=== PATIENT | female | born 2000 | race Caucasian/White ===

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

== ENCOUNTER → 2019-06-25 | Outpatient (CLI) | payer OTHER, SELFPAY ==
[2019-06-25 09:22] VITALS: BMI 30.2
[2019-06-25 15:59] LABS: Chlamydia Trachomatis by PCR Negative (Negative); Neisserai gonorrhoeae by PCR Negative (Negative); Probe Check PASS; Sample Adequacy Control PASS; Specimen Processing Control PASS
== END | disposition home or self-care (01) ==
LOC: LABSPEC 12:39
PROVIDERS: PCP Pediatrics; Referring Provider Nurse Practitioner Women's Health; Visit Provider Nurse Practitioner Women's Health
DX: Z11.3 Encounter for screening for infections with a predominantly sexual mode of transmission (principal)
CPT/HCPCS: 87491; 87591

== ENCOUNTER 2019-09-11 11:09 | Emergency (ER) | payer OTHER, SELFPAY ==
[2019-06-25 09:22] VITALS: BMI 30.2
[2019-09-11 11:10] VITALS: BP 131/75; PULSE 106; RESP 18; TEMP 36.3; O2SAT 98; BMI 32.9
--- NOTE | 2019-09-11 11:31 | CT_ITS ---
STUDY: CT ABDOMEN AND PELVIS WITHOUT CONTRAST REASON FOR EXAM: Female, 19 years old. LLQ/LUQ PAIN. ON ATB FOR UTI RADIATION DOSAGE (If Supplied By Facility): CTDIvol = ( 13.02 ) mGy, DLP = ( 1010.77 ) mGycm TECHNIQUE: Transaxial images were obtained from the dome of the diaphragm to the symphysis pubis without oral contrast, and without intravenous contrast. Sagittal and coronal images were reconstructed. Individualized dose optimization techniques were used for this CT. COMPARISON: None. FINDINGS: The visualized lung bases are unremarkable. The visualized portions of the heart are within normal limits. Normal liver. Normal gallbladder and extrahepatic biliary system. Normal spleen. Normal pancreas. Normal bilateral adrenal glands. Normal right kidney. Normal left kidney. Normal visualized stomach. Normal small intestine. Normal colon. The appendix is visualized and appears normal. Normal abdominal aorta. Normal inferior vena cava. Normal retroperitoneum. Normal urinary bladder. There is a 2.1 cm x 2.5 cm left ovarian cyst. Normal abdominal wall. Normal osseous structures. CT/Abdomen/Pelvis W IV Cont ONLY IMPRESSION: 2.1 cm x 2.5 cm left ovarian cyst. Electronically Signed: Marv Bond, at 13:24 EDT , Service support ,
[2019-09-11 11:38] LABS: Mucous, Urine 0 SEEN /hpf (<or=2+); Red Blood Cells-Urine 0 SEEN /hpf (0-5); White Blood Cells 0 SEEN /hpf (0-5)
[2019-09-11 11:41] LABS: Color, Urine Straw (Yellow); Glucose, Dipstick Normal (Normal); Ketone-Dipstick Negative (Negative); Leukocyte Esterase-Dipstick Negative /ul (Negative); Nitrite-Dipstick Negative (Negative); Occult Blood-Urine 10 /ul (Negative); Protein-Dipstick Negative (Negative); Specific Gravity, Urine 1.005 (1.002-1.030); Urine Bilirubin Dipstick Negative (Negative); Urine Clarity Clear (Clear); Urine Urobilinogen Normal (Normal)
[2019-09-11 11:44] LABS: Internal QC Validated? YES +Cl - CLEAR BKGD; Pregnancy, Urine Negative Negative
[2019-09-11 11:47] LABS: Bacteria 1+ /hpf (None Seen); Squamous Epithelial Cells - UA 0-5 SEEN /hpf (5-10)
[2019-09-11] MEDS: 0.9% Normal Saline 1,000 ML 1000 ML IV (12:01)
[2019-09-11 12:16] LABS: Absolute Lymphocyte Count 1.58 X10^3/uL (0.83-4.51); Absolute Neutrophil Count 4.2 X10^3/uL (2.0-7.7); Basophil# 0.04 X10^3/uL; Basophil% 0.6 % (0-1); Eosinophil# 0.12 X10^3/uL; Eosinophils% 1.9 % (0-5); Hematocrit 41.6 % (37-47); Hemoglobin 13.8 g/dL (12.0-15.0); Lymphocyte # 1.58 X10^3/ul (4.0); Lymphocyte % 24.5 % (19-41); Mean Corp Hgb Conc 33.2 g/dL (32-36); Mean Corpuscular Hgb 30.3 pg (27.0-32.0); Mean Corpuscular Volume 91.4 fL (81-99); Mean Platelet Vol. 9.7 fl (6.2-12.0); Monocyte# 0.51 X10^3/uL; Monocyte% 7.9 % (0-10); NRBC Flagged by Analyzer 0 % (0-5); Neutrophil # 4.16 X10^3/uL (2.7-7.7); Neutrophil % 64.6 % (47-70); Platelet Count 214 K/mm3 (150-450); RBC Distribution Width CV 11.8 % (11.6-14.6); RBC Distribution Width SD 39.3 fl (35.1-43.9); Red Blood Count 4.55 M/mm3 (4.2-5.4); White Blood Count 6.4 K/mm3 (4.4-11.0)
[2019-09-11 12:30] LABS: ALB/GLOB Ratio 1.2 RATIO (0.9-2.4); AST(SGOT) 11 U/L (15-37); Alanine Aminotransfer ALT/SGPT 21 U/L (13-56); Albumin, Serum 3.8 g/dL (3.2-5.0); Alkaline Phosphatase 78 U/L (45-117); Anion Gap 7 (5-15); BUN 9 mg/dL (7-18); BUN/Creat Ratio 10.6 RATIO (10-20); Chloride 104 mmol/L (98-107); Creatinine, Serum 0.85 mg/dL (0.55-1.02); EST Glomerular Filtration Rate 90 mL/min (>60); Est Glom Filt Rate - Afr Amer 109 mL/min (>60); Globulin 3.3 g/dL (2.2-4.2); Glucose 102 mg/dL (74-106); Lipase 65 U/L (73-393); Potassium 3.7 mmol/L (3.5-5.1); Protein, Total 7.1 g/dL (6.4-8.2); Sodium Level 139 mmol/L (136-145)
--- NOTE | 2019-09-11 12:43 | ED.VIS.GI ---
History of Present Illness - Abdominal Pain/Flank Pain Onset: Weeks - 2 weeks Context: Gradual Onset Timing: Intermittent Quality: Cramping Location: LUQ, LLQ, Left Flank Current Severity: Moderate Maximum Severity: Severe Worsened by: Food Relieved by: Remaining Still - Nausea/Vomiting/Emesis GI Symptom: Nausea Onset: Today, Yesterday Severity: Mild - Diarrhea/Melena/Hematochezia GI Symptom: Negative for: Diarrhea, Melena, Hematochezia Associated Symptoms: Negative for: Dysuria, Frequency, Hematuria, Urgency Narrative: 19-year-old female presents to the emergency department with left-sided abdominal pain that she is been having intermittently for 2 weeks. She has seen her doctor 3 times, the first time it was a virtual visit and she was having dysuria so they placed her on Macrobid which did not improve her symptoms. She had a follow-up and they treated her for bacterial vaginosis with Flagyl and did a pelvic exam. She had a follow-up again yesterday with a placed her on Cipro and she had outpatient ultrasounds this morning, transvaginal and retroperitoneal, but is having worsening left-sided abdominal pain which prompted her visit to the emergency department. She has had nausea without vomiting. She states she is having normal bowel movements. No urinary symptoms vaginal bleeding or discharge. No fevers. Prior similar symptoms: Yes Recent Illness/Hospitalization: No <Artemio Rodriguez - Last Filed: 09/11/19 13:32> <Aster Flores - Last Filed: 09/22/19 23:55> Chief Complaint: Abd Pain Past Medical History Prior records reviewed: Yes Past Medical History: None Surgical History: no surgical history Lives: With Family Smoking Status: Never smoker Alcohol: None Drugs: None <Artemio Rodriguez - Last Filed: 09/11/19 13:32> <Aster Flores - Last Filed: 09/22/19 23:55> - Allergies and Home Meds Allergies/Adverse Reactions: Allergies No Known Allergies Allergy (Verified 09/11/19 11:13) Primary Care Physician: Amadeo Liu PA [Primary Care Provider] - Review of Systems All systems negative except as indicated General: Denies: Chills, Fever, Sweats Eyes: Denies: Visual changes - bilaterally, Diplopia ENT: Denies: Rhinorrhea, Sore throat Cardiovascular: Denies: Chest pain, Palpitations Respiratory: Denies: Dyspnea, Cough, Dyspnea on exertion Gastrointestinal: Reports: Abdominal pain, Nausea. Denies: Vomiting, Diarrhea, Melena, Hematochezia Genitourinary: Denies: Dysuria, Hematuria, Frequency Musculoskeletal: Denies: Back pain, Extremity Pain Skin: Denies: Rash, Wounds Neurological: Denies: Headache, Weakness, Numbness Endocrine: Denies: Polyuria, Polydipsia <Denise Rodriguezony - Last Filed: 09/11/19 13:32> Physical Exam Vital Signs/Narrative: Vital Signs Temp Pulse Resp BP Pulse Ox 09/11/19 11:10 97.4 F L 106 H 18 131/75 H 98 Inital Vital Signs reviewed: Yes General: Well nourished, Well developed, No Acute Distress Head: Normocephalic, Atraumatic Eyes: Perrl, EOMI ENT: Moist mucous membranes, No rhinorrhea Neck: Supple, Nontender Cardiovascular: Regular rate, Regular rhythm, No murmurs Respiratory: No distress, CTA bilaterally, Chest nontender Abdomen: Soft, Nondistended, Normal bowel sounds, Tender - LUQ and LLQ TTP Back: Nontender, Normal Inspection. Negative for: CVA tenderness Extremities: Nontender, No edema Skin: Normal color, No rash Neurological: Alert, Oriented x3, Cranial nerves II-XII grossly intact, Normal Strength, Normal Sensation Psychological: Normal affect, Normal Mood <Denise Rodriguezony - Last Filed: 09/11/19 13:32> Diagnostic/Tx/Re-eval CT: Abdomen and Pelvis Impressions Abdomen/Pelvis CT 09/11/19 11:31 IMPRESSION: 2.1 cm x 2.5 cm left ovarian cyst. Electronically Signed: Marv Bond, at 13:24 EDT , Service support , 09/11/19 11:31 CT Abd [Abdomen/Pelvis W IV Cont ONLY] [CT] Stat Laboratory Results 09/11/19 09/11/19 09/11/19 11:25 11:25 12:02 WBC 6.4 RBC 4.55 Hgb 13.8 Hct 41.6 MCV 91.4 MCH 30.3 MCHC 33.2 RDW Std Deviation 39.3 RDW Coeff of Linda 11.8 Plt Count 214 MPV 9.7 Immature Gran % (Auto) 0.500 Neut % (Auto) 64.6 Lymph % (Auto) 24.5 [place] % (Auto) 7.9 Eos % (Auto) 1.9 Baso % (Auto) 0.6 Absolute Neuts (auto) 4.2 Absolute Lymphs (auto) 1.58 Nucleated RBC % 0 Sodium Potassium Chloride Carbon Dioxide Anion Gap BUN Creatinine Estim Creat Clear Calc Est GFR (MDRD) Af Amer Est GFR (MDRD) Non-Af BUN/Creatinine Ratio Glucose Calcium Total Bilirubin AST ALT Alkaline Phosphatase Total Protein Albumin Globulin Albumin/Globulin Ratio Lipase Urine Color Straw Urine Clarity Clear Urine pH 7.0 Ur Specific [place] 1.005 Urine Protein Negative Urine Glucose (UA) Normal Urine Ketones Negative Urine Occult Blood 10 H Urine Nitrite Negative Urine Bilirubin Negative Urine Urobilinogen Normal Ur Leukocyte Esterase Negative Urine RBC 0 SEEN Urine WBC 0 SEEN Ur Squamous Epith Cells 0-5 SEEN Urine Bacteria 1+ Urine Mucus 0 SEEN Urine Test Negative 09/11/19 12:02 WBC RBC Hgb Hct MCV MCH MCHC RDW Std Deviation RDW Coeff of Linda Plt Count MPV Immature Gran % (Auto) Neut % (Auto) Lymph % (Auto) [place] % (Auto) Eos % (Auto) Baso % (Auto) Absolute Neuts (auto) Absolute Lymphs (auto) Nucleated RBC % Sodium 139 Potassium 3.7 Chloride 104 Carbon Dioxide 28.0 Anion Gap 7 BUN 9 Creatinine 0.85 Estim Creat Clear Calc 83.50 Est GFR (MDRD) Af Amer 109 Est GFR (MDRD) Non-Af 90 BUN/Creatinine Ratio 10.6 Glucose 102 Calcium 9.0 Total Bilirubin 0.50 AST 11 L ALT 21 Alkaline Phosphatase 78 Total Protein 7.1 Albumin 3.8 Globulin 3.3 Albumin/Globulin Ratio 1.2 Lipase 65 L Urine Color Urine Clarity Urine pH Ur Specific [place] Urine Protein Urine Glucose (UA) Urine Ketones Urine Occult Blood Urine Nitrite Urine Bilirubin Urine Urobilinogen Ur Leukocyte Esterase Urine RBC Urine WBC Ur Squamous Epith Cells Urine Bacteria Urine Mucus Urine Test - Medical Decision Making Patient treated with IV fluids. CBC CMP lipase were unremarkable. Urinalysis unremarkable as well. I reviewed the patient's outpatient ultrasounds. Her transvaginal ultrasound showed a left-sided ovarian cyst no other acute findings. Retroperitoneal ultrasound unremarkable as well. CT scan abdomen and pelvis with IV contrast was obtained here in the emergency department which showed a left-sided ovarian cyst but no other acute findings. At this time we feel the patient symptoms are likely due to GERD she was given IV Pepcid I will prescribe her Pepcid she will follow-up with her primary care and I discussed a GERD diet. Mom and patient were agreeable. Her repeat abdominal exam is soft and nontender. She is tolerating by mouth. She was discharged home. <Artemio Rodriguez - Last Filed: 09/11/19 13:32> - Medical Decision Making Patient evaluated independently and in conjunction with physician assistant superintendent. Agree with note above unless documented otherwise. Patient does not appear to have any acute intra-abdominal surgical process. She is very well-appearing. She is counseled on a bland diet. She will be treated presumptively as GERD however patient and mother counseled that the exact cause is not clear. <Aster Flores - Last Filed: 09/22/19 23:55> ED Disposition <Artemio Rodriguez - Last Filed: 09/11/19 13:32> <Aster Flores - Last Filed: 09/22/19 23:55> - Plan for ED Patient: Disposition: Home or Assisted Living Diagnosis: Abdominal pain, ADHD, Hypertension Instructions: Gastroesophageal Reflux Disease (GERD), ED Abdominal Pain Unkn Cause Fem Prescriptions: Famotidine [Pepcid] 20 mg PO BID #28 tab Prescription Printed Referrals: Amadeo Liu PA [Primary Care Provider] -
[2019-09-11] MEDS: Famotidine 200 MG/20 ML MDV 20 MG in 0.9% Normal Saline (Pres. free 8 ML 300 MG IV (14:01)
[2019-09-11 14:03] VITALS: BP 113/56; PULSE 79; PULSE 83; RESP 17; RESP 18; O2SAT 99
== END 2019-09-11 14:33 | disposition home or self-care (01) ==
PROVIDERS: Emergency Provider Physician Assistant Medical; PCP Physician Assistant
DX: R10.32 Left lower quadrant pain (principal); R10.12 Left upper quadrant pain; I10 Essential (primary) hypertension; F90.9 Attention-deficit hyperactivity disorder, unspecified type; N83.202 Unspecified ovarian cyst, left side
CPT/HCPCS: 74177; 80053; 81001; 81025; 83690; 85025; 96360; 96361; 99283; J7030; Q9967; A4216; J3490

== ENCOUNTER → 2020-10-27 | Outpatient (CLI) | payer OTHER, SELFPAY ==
[2020-10-27 13:08] VITALS: BMI 41.8
[2020-10-31 04:06] LABS: Chlamydia By Nucleic Acid AMP Negative (Negative)
[2020-10-31 07:23] LABS: Gonococcus By Nucleic Acid AMP Negative (Negative)
[2020-11-01 16:48] LABS: HPV Reflexed? NOT INDICATED
== END | disposition home or self-care (01) ==
PROVIDERS: PCP Physician Assistant; Referring Provider Nurse Practitioner Women's Health; Visit Provider Nurse Practitioner Women's Health
DX: Z12.4 Encounter for screening for malignant neoplasm of cervix (principal); Z11.3 Encounter for screening for infections with a predominantly sexual mode of transmission
CPT/HCPCS: 87491; 87591; 88175; G0145

== ENCOUNTER 2021-07-03 07:32 | Outpatient (CLI) | payer OTHER, SELFPAY ==
[2021-07-03 08:48] LABS: Prolactin 14.4 ng/mL; Thyroid Stim Hormone (TSH) 1.59 uIU/mL (0.358-3.74)
== END 2021-07-03 23:59 | disposition home or self-care (01) ==
LOC: PAVLAB 07:34
PROVIDERS: PCP Physician Assistant; Referring Provider Nurse Practitioner Women's Health; Visit Provider Nurse Practitioner Women's Health
DX: N97.0 Female infertility associated with anovulation (principal)
CPT/HCPCS: 36415; 82627; 84146; 84402; 84443; 82626

== ENCOUNTER 2021-07-21 07:30 | Outpatient (CLI) | payer OTHER, SELFPAY ==
[2021-07-21 08:02] LABS: Progesterone Level 0.91 ng/mL (See Comment)
== END 2021-07-21 23:59 | disposition home or self-care (01) ==
LOC: PAVLAB 07:31
PROVIDERS: Nurse Practitioner Women's Health; PCP Physician Assistant; Referring Provider Obstetrics & Gynecology; Visit Provider Obstetrics & Gynecology
DX: N97.0 Female infertility associated with anovulation (principal)
CPT/HCPCS: 36415; 84144

== ENCOUNTER 2021-07-25 16:41 | Outpatient (CLI) | payer OTHER, SELFPAY ==
[2021-07-25 17:33] LABS: T4 Free Direct 0.99 ng/dL (0.76-1.46); Thyroid Stim Hormone (TSH) 1.58 uIU/mL (0.358-3.74)
== END 2021-07-25 23:59 | disposition home or self-care (01) ==
LOC: LAB 16:42
PROVIDERS: PCP Physician Assistant; Visit Provider Obstetrics & Gynecology
DX: N97.0 Female infertility associated with anovulation (principal)
CPT/HCPCS: 36415; 84439; 84443

== ENCOUNTER → 2021-09-25 | Outpatient (CLI) | payer OTHER, SELFPAY ==
[2021-09-25 08:20] LABS: Progesterone Level 5.96 ng/mL (See Comment)
== END | disposition home or self-care (01) ==
LOC: PAVLAB 07:35
PROVIDERS: PCP Physician Assistant; Referring Provider Nurse Practitioner Women's Health; Visit Provider Nurse Practitioner Women's Health
DX: N97.0 Female infertility associated with anovulation (principal)
CPT/HCPCS: 36415; 84144

== ENCOUNTER → 2021-10-26 | Outpatient (CLI) | payer OTHER, SELFPAY | END | disposition home or self-care (01) | LOC: PAVLAB 07:33 | PROVIDERS: PCP Physician Assistant; Referring Provider Nurse Practitioner Women's Health; Visit Provider Nurse Practitioner Women's Health | DX: N97.0 Female infertility associated with anovulation (principal) | CPT/HCPCS: 36415; 84144 ==

== ENCOUNTER → 2022-05-11 | Outpatient (CLI) | payer BC, OTHER, SELFPAY ==
[2022-05-11 10:13] LABS: Hemoglobin A1c 4.7 % (3.8-5.6)
[2022-05-14 14:52] LABS: Anti-Mullerian Hormone,Serum 3.97 ng/mL (.)
== END | disposition home or self-care (01) ==
LOC: WOBLAB 08:42
PROVIDERS: PCP Physician Assistant; Visit Provider Obstetrics & Gynecology Reproductive Endocrinology
DX: Z31.41 Encounter for fertility testing (principal)
CPT/HCPCS: 36415; 83036; 83516

== ENCOUNTER → 2022-05-21 | Outpatient (CLI) | payer BC, OTHER, SELFPAY ==
[2022-05-21 09:38] LABS: Follicle Stimulating Hormone 7.7 mIU/mL; Luteinizing Hormone 3.9 mIU/mL; Thyroid Stim Hormone (TSH) 1.04 uIU/mL (0.358-3.74)
[2022-05-21 09:51] LABS: hCG Titer Quant., Serum < 1 mIU/mL (1-3)
== END | disposition home or self-care (01) ==
LOC: PAVLAB 08:58
PROVIDERS: PCP Physician Assistant; Referring Provider Obstetrics & Gynecology Reproductive Endocrinology; Visit Provider Obstetrics & Gynecology Reproductive Endocrinology
DX: Z31.83 Encounter for assisted reproductive fertility procedure cycle (principal)
CPT/HCPCS: 36415; 82670; 83001; 83002; 84144; 84443; 84702

== ENCOUNTER → 2022-05-25 | Outpatient (CLI) | payer BC, OTHER, SELFPAY ==
[2022-05-25 08:38] LABS: Estradiol 36.3 pg/mL; Luteinizing Hormone 7.4 mIU/mL
[2022-05-25 09:00] LABS: Progesterone Level 0.36 ng/mL (See Comment)
== END | disposition home or self-care (01) ==
LOC: PAVLAB 08:07
PROVIDERS: PCP Physician Assistant; Referring Provider Obstetrics & Gynecology Reproductive Endocrinology; Visit Provider Obstetrics & Gynecology Reproductive Endocrinology
DX: Z31.83 Encounter for assisted reproductive fertility procedure cycle (principal)
CPT/HCPCS: 36415; 82670; 83002; 84144

== ENCOUNTER → 2022-05-28 | Outpatient (CLI) | payer BC, OTHER, SELFPAY ==
[2022-05-28 09:05] LABS: Estradiol 67.8 pg/mL; Luteinizing Hormone 1.3 mIU/mL
[2022-05-28 09:13] LABS: Progesterone Level 0.26 ng/mL (See Comment)
== END | disposition home or self-care (01) ==
LOC: PAVLAB 08:35
PROVIDERS: PCP Physician Assistant; Referring Provider Obstetrics & Gynecology Reproductive Endocrinology; Visit Provider Obstetrics & Gynecology Reproductive Endocrinology
DX: Z31.83 Encounter for assisted reproductive fertility procedure cycle (principal)
CPT/HCPCS: 36415; 82670; 83002; 84144

== ENCOUNTER → 2022-05-30 | Outpatient (CLI) | payer BC, OTHER, SELFPAY ==
[2022-05-30 09:05] LABS: Estradiol 89.9 pg/mL; Luteinizing Hormone 0.9 mIU/mL
[2022-05-30 09:35] LABS: Progesterone Level 0.33 ng/mL (See Comment)
== END | disposition home or self-care (01) ==
LOC: PAVLAB 08:32
PROVIDERS: PCP Physician Assistant; Referring Provider Obstetrics & Gynecology Reproductive Endocrinology; Visit Provider Obstetrics & Gynecology Reproductive Endocrinology
DX: Z31.83 Encounter for assisted reproductive fertility procedure cycle (principal)
CPT/HCPCS: 36415; 82670; 83002; 84144

== ENCOUNTER → 2022-06-01 | Outpatient (CLI) | payer BC, OTHER, SELFPAY ==
[2022-06-01 10:31] LABS: Progesterone Level 0.53 ng/mL (See Comment)
[2022-06-01 10:40] LABS: Estradiol 244.6 pg/mL; Luteinizing Hormone 0.8 mIU/mL
== END | disposition home or self-care (01) ==
LOC: PAVLAB 09:47
PROVIDERS: PCP Physician Assistant; Referring Provider Obstetrics & Gynecology Reproductive Endocrinology; Visit Provider Obstetrics & Gynecology Reproductive Endocrinology
DX: Z31.83 Encounter for assisted reproductive fertility procedure cycle (principal)
CPT/HCPCS: 36415; 82670; 83002; 84144

== ENCOUNTER → 2022-06-12 | Outpatient (CLI) | payer BC, OTHER, SELFPAY ==
[2022-06-12 08:31] LABS: Estradiol 634.2 pg/mL
[2022-06-12 09:44] LABS: Progesterone Level 106.23 ng/mL (See Comment)
== END | disposition home or self-care (01) ==
LOC: PAVLAB 07:57
PROVIDERS: PCP Physician Assistant; Referring Provider Obstetrics & Gynecology Reproductive Endocrinology; Visit Provider Obstetrics & Gynecology Reproductive Endocrinology
DX: Z31.49 Encounter for other procreative investigation and testing (principal)
CPT/HCPCS: 36415; 82670; 84144

== ENCOUNTER → 2022-06-19 | Outpatient (CLI) | payer BC, OTHER, SELFPAY ==
[2022-06-19 09:17] LABS: hCG Titer Quant., Serum 13 mIU/mL (1-3)
[2022-06-19 09:18] LABS: Progesterone Level 40.25 ng/mL (See Comment)
== END | disposition home or self-care (01) ==
LOC: PAVLAB 08:13
PROVIDERS: PCP Physician Assistant; Referring Provider Obstetrics & Gynecology Reproductive Endocrinology; Visit Provider Obstetrics & Gynecology Reproductive Endocrinology
DX: Z32.00 Encounter for pregnancy test, result unknown (principal)
CPT/HCPCS: 36415; 84144; 84702

== ENCOUNTER → 2022-06-21 | Outpatient (CLI) | payer BC, OTHER, SELFPAY ==
[2022-06-21 08:57] LABS: Progesterone Level 42.12 ng/mL (See Comment)
[2022-06-21 08:58] LABS: hCG Titer Quant., Serum 12 mIU/mL (1-3)
[2022-06-21 09:05] LABS: Estradiol 201.5 pg/mL; Thyroid Stim Hormone (TSH) 2.27 uIU/mL (0.358-3.74)
== END | disposition home or self-care (01) ==
LOC: PAVLAB 07:59
PROVIDERS: PCP Physician Assistant; Referring Provider Obstetrics & Gynecology Reproductive Endocrinology; Visit Provider Obstetrics & Gynecology Reproductive Endocrinology
DX: Z32.01 Encounter for pregnancy test, result positive (principal)
CPT/HCPCS: 36415; 82670; 84144; 84443; 84702

== ENCOUNTER → 2022-06-25 | Outpatient (CLI) | payer BC, OTHER, SELFPAY ==
[2022-06-25 08:32] LABS: Estradiol 104.9 pg/mL
[2022-06-25 08:36] LABS: hCG Titer Quant., Serum 3 mIU/mL (1-3)
[2022-06-25 08:37] LABS: Progesterone Level 44.51 ng/mL (See Comment)
== END | disposition home or self-care (01) ==
PROVIDERS: PCP Physician Assistant; Referring Provider Obstetrics & Gynecology Reproductive Endocrinology; Visit Provider Obstetrics & Gynecology Reproductive Endocrinology
DX: O02.81 Inappropriate change in quantitative human chorionic gonadotropin (hCG) in early pregnancy (principal)
CPT/HCPCS: 36415; 82670; 84144; 84702

== ENCOUNTER → 2022-07-02 | Outpatient (CLI) | payer BC, OTHER, SELFPAY ==
[2022-07-02 09:42] LABS: Follicle Stimulating Hormone 6.2 mIU/mL; Luteinizing Hormone 1.9 mIU/mL; Thyroid Stim Hormone (TSH) 1.69 uIU/mL (0.358-3.74)
[2022-07-02 09:46] LABS: hCG Titer Quant., Serum < 1 mIU/mL (1-3)
[2022-07-02 09:51] LABS: Progesterone Level < 0.21 ng/mL (See Comment)
== END | disposition home or self-care (01) ==
LOC: PAVLAB 08:55
PROVIDERS: PCP Physician Assistant; Referring Provider Obstetrics & Gynecology Reproductive Endocrinology; Visit Provider Obstetrics & Gynecology Reproductive Endocrinology
DX: Z31.83 Encounter for assisted reproductive fertility procedure cycle (principal)
CPT/HCPCS: 36415; 82670; 83001; 83002; 84144; 84443; 84702

== ENCOUNTER → 2022-07-09 | Outpatient (CLI) | payer BC, OTHER, SELFPAY ==
[2022-07-09 10:08] LABS: Progesterone Level 0.29 ng/mL (See Comment)
[2022-07-09 10:09] LABS: Estradiol 214.5 pg/mL; Luteinizing Hormone 3.9 mIU/mL
== END | disposition home or self-care (01) ==
LOC: WOBLAB 08:33
PROVIDERS: PCP Physician Assistant; Visit Provider Obstetrics & Gynecology Reproductive Endocrinology
DX: Z31.83 Encounter for assisted reproductive fertility procedure cycle (principal)
CPT/HCPCS: 36415; 82670; 83002; 84144

== ENCOUNTER → 2022-07-12 | Outpatient (CLI) | payer BC, OTHER, SELFPAY ==
[2022-07-12 09:37] LABS: Estradiol 480.3 pg/mL; Luteinizing Hormone 2.8 mIU/mL; Progesterone Level 0.42 ng/mL (See Comment)
== END | disposition home or self-care (01) ==
LOC: WOBLAB 08:54
PROVIDERS: PCP Physician Assistant; Visit Provider Obstetrics & Gynecology Reproductive Endocrinology
DX: Z31.83 Encounter for assisted reproductive fertility procedure cycle (principal)
CPT/HCPCS: 36415; 82670; 83002; 84144

== ENCOUNTER → 2022-07-21 | Outpatient (CLI) | payer BC, OTHER, SELFPAY ==
[2022-07-21 10:34] LABS: Progesterone Level 30.31 ng/mL (See Comment)
== END | disposition home or self-care (01) ==
LOC: MTLAB 09:09 → LAB 09:09
PROVIDERS: PCP Physician Assistant; Referring Provider Obstetrics & Gynecology Reproductive Endocrinology; Visit Provider Obstetrics & Gynecology Reproductive Endocrinology
DX: Z31.49 Encounter for other procreative investigation and testing (principal)
CPT/HCPCS: 36415; 82670; 84144

== ENCOUNTER → 2022-07-28 | Outpatient (CLI) | payer BC, OTHER, SELFPAY ==
[2022-07-28 09:44] LABS: hCG Titer Quant., Serum < 1 mIU/mL (1-3)
[2022-07-30 09:02] LABS: Progesterone Level 38.55 ng/mL (See Comment)
== END | disposition home or self-care (01) ==
LOC: LAB 09:14
PROVIDERS: PCP Physician Assistant; Referring Provider Obstetrics & Gynecology Reproductive Endocrinology; Visit Provider Obstetrics & Gynecology Reproductive Endocrinology
DX: Z32.00 Encounter for pregnancy test, result unknown (principal)
CPT/HCPCS: 36415; 84144; 84702

== ENCOUNTER → 2022-08-03 | Outpatient (CLI) | payer BC, OTHER, SELFPAY ==
[2022-08-03 10:12] LABS: Progesterone Level 1.57 ng/mL (See Comment)
[2022-08-03 10:14] LABS: hCG Titer Quant., Serum < 1 mIU/mL (1-3)
[2022-08-03 10:18] LABS: Estradiol 24.3 pg/mL; Follicle Stimulating Hormone 2.6 mIU/mL; Luteinizing Hormone 0.6 mIU/mL; Thyroid Stim Hormone (TSH) 1.01 uIU/mL (0.358-3.74)
== END | disposition home or self-care (01) ==
LOC: WOBLAB 09:17
PROVIDERS: PCP Physician Assistant; Visit Provider Obstetrics & Gynecology Reproductive Endocrinology
DX: Z31.83 Encounter for assisted reproductive fertility procedure cycle (principal)
CPT/HCPCS: 36415; 82670; 83001; 83002; 84144; 84443; 84702

== ENCOUNTER → 2022-08-10 | Outpatient (CLI) | payer BC, OTHER, SELFPAY ==
[2022-08-10 10:55] LABS: Estradiol 110.6 pg/mL; Luteinizing Hormone 0.4 mIU/mL
[2022-08-10 11:26] LABS: Progesterone Level < 0.21 ng/mL (See Comment)
== END | disposition home or self-care (01) ==
LOC: WOBLAB 09:51
PROVIDERS: PCP Physician Assistant; Visit Provider Obstetrics & Gynecology Reproductive Endocrinology
DX: Z31.83 Encounter for assisted reproductive fertility procedure cycle (principal)
CPT/HCPCS: 36415; 82670; 83002; 84144

== ENCOUNTER → 2022-08-13 | Outpatient (CLI) | payer BC, OTHER, SELFPAY ==
[2022-08-13 11:06] LABS: Estradiol 493.3 pg/mL; Luteinizing Hormone 0.3 mIU/mL
== END | disposition home or self-care (01) ==
LOC: WOBLAB 09:58
PROVIDERS: PCP Physician Assistant; Visit Provider Obstetrics & Gynecology Reproductive Endocrinology
DX: Z31.83 Encounter for assisted reproductive fertility procedure cycle (principal)
CPT/HCPCS: 36415; 82670; 83002; 84144

== ENCOUNTER → 2022-08-15 | Outpatient (CLI) | payer BC, OTHER, SELFPAY ==
[2022-08-15 09:47] LABS: Estradiol 1283.9 pg/mL; Luteinizing Hormone 0.7 mIU/mL
[2022-08-15 09:53] LABS: Progesterone Level 1.33 ng/mL (See Comment)
== END | disposition home or self-care (01) ==
LOC: WOBLAB 08:57
PROVIDERS: PCP Physician Assistant; Visit Provider Obstetrics & Gynecology Reproductive Endocrinology
DX: Z31.83 Encounter for assisted reproductive fertility procedure cycle (principal)
CPT/HCPCS: 36415; 82670; 83002; 84144

== ENCOUNTER → 2022-09-07 | Outpatient (CLI) | payer BC, OTHER, SELFPAY ==
[2022-09-07 09:44] LABS: Estradiol 46.1 pg/mL; Luteinizing Hormone 4.8 mIU/mL
[2022-09-07 10:10] LABS: Progesterone Level < 0.21 ng/mL (See Comment)
== END | disposition home or self-care (01) ==
LOC: WOBLAB 08:49
PROVIDERS: PCP Physician Assistant; Visit Provider Obstetrics & Gynecology Reproductive Endocrinology
DX: Z31.83 Encounter for assisted reproductive fertility procedure cycle (principal)
CPT/HCPCS: 36415; 82670; 83002; 84144

== ENCOUNTER → 2022-09-10 | Outpatient (CLI) | payer BC, OTHER, SELFPAY ==
[2022-09-10 09:15] LABS: Estradiol 122.8 pg/mL; Luteinizing Hormone 3.5 mIU/mL
[2022-09-10 10:28] LABS: Progesterone Level < 0.21 ng/mL (See Comment)
== END | disposition home or self-care (01) ==
LOC: PAVLAB 08:36
PROVIDERS: PCP Physician Assistant; Referring Provider Obstetrics & Gynecology Reproductive Endocrinology; Visit Provider Obstetrics & Gynecology Reproductive Endocrinology
DX: Z31.83 Encounter for assisted reproductive fertility procedure cycle (principal); E28.9 Ovarian dysfunction, unspecified
CPT/HCPCS: 36415; 82670; 83002; 84144

== ENCOUNTER → 2022-09-12 | Outpatient (CLI) | payer BC, OTHER, SELFPAY ==
[2022-09-12 10:30] LABS: Progesterone Level 0.45 ng/mL (See Comment)
[2022-09-12 10:31] LABS: Estradiol 248.9 pg/mL; Luteinizing Hormone 8.6 mIU/mL
== END | disposition home or self-care (01) ==
LOC: WOBLAB 09:36
PROVIDERS: PCP Physician Assistant; Visit Provider Obstetrics & Gynecology Reproductive Endocrinology
DX: Z31.83 Encounter for assisted reproductive fertility procedure cycle (principal)
CPT/HCPCS: 36415; 82670; 83002; 84144

== ENCOUNTER → 2022-09-24 | Outpatient (CLI) | payer BC, OTHER, SELFPAY ==
[2022-09-24 09:01] LABS: Estradiol 524.8 pg/mL
[2022-09-24 10:58] LABS: Progesterone Level 66.72 ng/mL (See Comment)
== END | disposition home or self-care (01) ==
LOC: PAVLAB 08:05
PROVIDERS: PCP Physician Assistant; Referring Provider Obstetrics & Gynecology Reproductive Endocrinology; Visit Provider Obstetrics & Gynecology Reproductive Endocrinology
DX: Z31.49 Encounter for other procreative investigation and testing (principal)
CPT/HCPCS: 36415; 82670; 84144

== ENCOUNTER → 2022-09-28 | Outpatient (CLI) | payer BC, OTHER, SELFPAY ==
[2022-09-28 08:49] LABS: hCG Titer Quant., Serum 110 mIU/mL (1-3)
[2022-09-28 09:17] LABS: Progesterone Level 74.35 ng/mL (See Comment)
== END | disposition home or self-care (01) ==
PROVIDERS: PCP Physician Assistant; Referring Provider Obstetrics & Gynecology Reproductive Endocrinology; Visit Provider Obstetrics & Gynecology Reproductive Endocrinology
DX: Z32.00 Encounter for pregnancy test, result unknown (principal)
CPT/HCPCS: 36415; 84144; 84702

== ENCOUNTER → 2022-10-02 | Outpatient (CLI) | payer BC, OTHER, SELFPAY ==
[2022-10-02 08:47] LABS: hCG Titer Quant., Serum 844 mIU/mL (1-3)
[2022-10-02 08:50] LABS: Estradiol 749.2 pg/mL
[2022-10-02 10:30] LABS: Progesterone Level 77.28 ng/mL (See Comment)
== END | disposition home or self-care (01) ==
LOC: PAVLAB 08:13
PROVIDERS: PCP Physician Assistant; Referring Provider Obstetrics & Gynecology Reproductive Endocrinology; Visit Provider Obstetrics & Gynecology Reproductive Endocrinology
DX: Z32.01 Encounter for pregnancy test, result positive (principal)
CPT/HCPCS: 36415; 82670; 84144; 84443; 84702

== ENCOUNTER → 2022-10-05 | Outpatient (CLI) | payer BC, OTHER, SELFPAY ==
[2022-10-05 08:36] LABS: Estradiol 767.6 pg/mL
[2022-10-05 09:12] LABS: Progesterone Level 56.95 ng/mL (See Comment); hCG Titer Quant., Serum 2174 mIU/mL (1-3)
== END | disposition home or self-care (01) ==
LOC: PAVLAB 08:04
PROVIDERS: PCP Physician Assistant; Referring Provider Obstetrics & Gynecology Reproductive Endocrinology; Visit Provider Obstetrics & Gynecology Reproductive Endocrinology
DX: Z32.01 Encounter for pregnancy test, result positive (principal)
CPT/HCPCS: 36415; 82670; 84144; 84702

== ENCOUNTER → 2022-10-17 | Outpatient (CLI) | payer BC, OTHER, SELFPAY ==
[2022-10-17 12:26] LABS: Estradiol 752.5 pg/mL
[2022-10-17 13:02] LABS: Progesterone Level 66.98 ng/mL (See Comment)
[2022-10-17 13:03] LABS: hCG Titer Quant., Serum 49430 mIU/mL (1-3)
== END | disposition home or self-care (01) ==
PROVIDERS: PCP Physician Assistant; Referring Provider Obstetrics & Gynecology Reproductive Endocrinology; Visit Provider Obstetrics & Gynecology Reproductive Endocrinology
DX: O09.90 Supervision of high risk pregnancy, unspecified, unspecified trimester (principal); Z3A.00 Weeks of gestation of pregnancy not specified
CPT/HCPCS: 36415; 82670; 84144; 84702

== ENCOUNTER → 2022-10-24 | Outpatient (CLI) | payer BC, OTHER, SELFPAY ==
[2022-10-24 11:24] LABS: Estradiol 747.3 pg/mL
[2022-10-24 12:14] LABS: Progesterone Level 67.76 ng/mL (See Comment)
== END | disposition home or self-care (01) ==
LOC: PAVLAB 10:44
PROVIDERS: PCP Physician Assistant; Referring Provider Obstetrics & Gynecology Reproductive Endocrinology; Visit Provider Obstetrics & Gynecology Reproductive Endocrinology
DX: O09.00 Supervision of pregnancy with history of infertility, unspecified trimester (principal); Z3A.00 Weeks of gestation of pregnancy not specified
CPT/HCPCS: 36415; 82670; 84144; 84702

== ENCOUNTER 2023-05-20 18:20 | Inpatient (IN) | payer OTHER, SELFPAY ==
[2023-05-20] VITALS (9 sets, daily range): BP systolic 119–145; BP diastolic 61–93; PULSE 90–100; TEMP 37–37.4; O2SAT 97–98; BMI 47.3
[2023-05-20 17:56] LABS: Hematocrit 38.7 % (37-47); Hemoglobin 13.2 g/dL (12.0-15.0); Mean Corp Hgb Conc 34.1 g/dL (32-36); Mean Corpuscular Hgb 30.1 pg (27.0-32.0); Mean Corpuscular Volume 88.4 fL (81-99); Platelet Count 255 K/mm3 (150-450); RBC Distribution Width CV 12.3 % (11.6-14.6); RBC Distribution Width SD 40.2 fl (35.1-43.9); Red Blood Count 4.38 M/mm3 (4.2-5.4); White Blood Count 11.5 K/mm3 (4.4-11.0)
[2023-05-20 18:14] LABS: Protein, Urine (Random) 107.5 mg/dL (<11.9); Protein:Creat Ratio 546 mg/g CRE (0-200)
[2023-05-20 18:16] LABS: AST(SGOT) 25 U/L (15-37); Alanine Aminotransfer ALT/SGPT 13 U/L (13-56); Creatinine, Serum 0.71 mg/dL (0.55-1.02); EST Glomerular Filtration Rate 108 mL/min (>60); Est Glom Filt Rate - Afr Amer 131 mL/min (>60); Estimated Creatinine Clearance 149.84 ml/min; Uric Acid 4.5 mg/dL (2.6-6.0)
--- NOTE | 2023-05-20 18:55 | PCM.HP.OB ---
HPI - General General Date of Admission: 05/20/23 Date of Service: 05/20/23 Chief Complaint: cHTN with super imposed pre e HPI Narrative MAURO CELESTIN, is a 22 F who presents from office for r/o pre e. H/o cHTN on labetalol. Over the last week she has had off and on headaches. No vision changes or RUQ pain. No N/V. No ctx, vb, lof. Good FM. Increased swelling in hands and legs. PFSH PFSH Medical History Abdominal pain Hypertension Nausea vomiting and diarrhea Home Medications labetalol 100 mg tablet 100 mg PO BID 10/27/20 [History Last Taken 05/20/23 08:00 100 mg] Vitamin 1 tab PO DAILY 05/20/23 [History Last Taken 05/20/23 08:00 1tab] metformin 500 mg tablet 500 mg PO BID 05/20/23 [History Last Taken 05/20/23 08:00 500 mg] sertraline 50 mg tablet (Zoloft) 50 mg PO DAILY 05/20/23 [History Last Taken 05/20/23 08:00 50 mg] Allergy/AdvReac Type Severity Reaction Status Date / Time amoxicillin [From Augmentin] AdvReac Intermediate nausea, Verified 05/20/23 17:20 vominting, diarrhea clavulanic acid AdvReac Intermediate nausea, Verified 05/20/23 17:20 [From Augmentin] vominting, diarrhea Social History (Updated 06/26/21 @ 09:10 by Juana Holland) Smoking Status: Never smoker alcohol intake: never substance use type: does not use caffeine: Yes what type of physical activity do you participate in: walking seatbelt use: always do you feel safe at home: Yes additional social history: [place] - [employer] works at [employer] History 0 Elective abortions Hx Para Spontaneous abortions Hx # Term Pregnancies Ectopic pregnancies Hx # Pregnancies Multiple births # of living children NST FHR Rate Baby A Baseline: 145 Variability:: Moderate Accelerations:: 15 x 15 Decelerations:: None NST Reactive:: Yes FHR Category:: Category I Uterine Activity:: no regular ctx's Vital Signs Vital Signs Vital Signs: 05/20/23 17:18 05/20/23 17:18 05/20/23 17:38 Temperature Temperature Source Pulse Rate 93 Blood Pressure 135/76 H 119/78 BP Systolic 135 119 BP Diastolic 76 78 05/20/23 17:38 05/20/23 17:38 05/20/23 17:38 Temperature 98.6 F Temperature Source Temporal Pulse Rate 99 Blood Pressure BP Systolic BP Diastolic 05/20/23 17:48 05/20/23 17:48 05/20/23 18:04 Temperature Temperature Source Pulse Rate 98 Blood Pressure 134/77 H 132/61 H BP Systolic 134 132 BP Diastolic 77 61 05/20/23 18:04 05/20/23 18:19 05/20/23 18:19 Temperature Temperature Source Pulse Rate 93 93 Blood Pressure 139/70 H BP Systolic 139 BP Diastolic 70 05/20/23 18:33 05/20/23 18:33 Temperature Temperature Source Pulse Rate 98 Blood Pressure 145/80 H BP Systolic 145 BP Diastolic 80 Weight Weight: 258 lb 13.163 oz Body Mass Index (BMI) 47.3 Labs Labs Labs: Hct 38.7 % (37-47) Hgb 13.2 g/dL (12.0-15.0) Syphilis Total Ab Pending Chlamydia DNA (RAYRAY) Negative (Negative) N.gonorrhoeae DNA (RAYRAY) Negative (Negative) Miscellaneous Test Assessment & Plan (1) 37 weeks gestation of : PLAN: Admit for induction given cHTN with super imposed pre eclampsia without severe features. No severe range BP's. No hyper reflexia on exam. No VELA currently. Cytotec ordered. GBS negative. Epidural PRN. Pelvis adequate. EFW expected to be < 4500 g. (2) Chronic hypertension: PLAN: BP stable. Cont Labetalol. (3) Pre-eclampsia: PLAN: P/c ratio elevated. The remaining pre e labs are WNL. (4) Obesity affecting : (5) Anxiety: (6) conceived using assisted reproductive technology (ART): PLAN: by IVF.
[2023-05-20] MEDS: miSOPROStol 25 MCG TABLET PO ×2 (19:22→23:32)
[2023-05-20 19:33] LABS: Syphilis Antibodies Non-reactive
[2023-05-20] MEDS: 0.9% Saline Lock 10 ML Syringe IV (20:11)
[2023-05-20] MEDS: CHLORHEXIDINE GLUC 2% CLOTH 1 EACH TOWELETTE TOPICAL (21:27)
[2023-05-20] MEDS: Labetalol 100 MG Tablet PO (21:50)
[2023-05-21] VITALS (67 sets, daily range): BP systolic 123–168; BP diastolic 51–100; PULSE 86–121; RESP 16–18; TEMP 36.5–37.2; O2SAT 80–100
[2023-05-21] MEDS: miSOPROStol 25 MCG TABLET PO (03:16)
[2023-05-21] MEDS: 0.9% Normal Saline Single 100 ML IV.SOLN. INTRA-UTER (06:21)
[2023-05-21] MEDS: Oxytocin 15 Units/NS 250ml 15 UNITS/250 ML IV.SOLN 2 UNITS IV (07:51)
[2023-05-21] MEDS: Lactated Ringers 1,000 ML 50 ML IV (07:51)
[2023-05-21] MEDS: Labetalol 100 MG Tablet PO (09:14)
--- NOTE | 2023-05-21 09:18 | PCM.PN.BLA ---
Progress Note Late entry from 6:10 AM. Patient was not appreciating many contractions. She denied headache or visual changes. heart tones are category 1. Risk benefits and alternatives to Elizabeth induction labor discussed with patient she desired to proceed. Elizabeth was placed over the stylette in usual sterile fashion inflated to 30 cc. Patient and fetus tolerated the procedure well. Initiate Pitocin after 4 hours from last Cytotec. May have a late breakfast.
[2023-05-21] MEDS: CHLORHEXIDINE GLUC 2% CLOTH 1 EACH TOWELETTE TOPICAL (09:46)
[2023-05-21] MEDS: 0.9% Saline Lock 10 ML Syringe IV (13:07)
[2023-05-21] MEDS: Mag Hydrox/Al Hydrox/Simeth 30 ML UDC PO (13:07)
[2023-05-21] MEDS: LACTATED RINGERS 500 ML 999 ML IV (14:00)
[2023-05-21] MEDS: fentaNYL-bupivacaine (epidural) 100 ML BAG EPIDURAL ×2 (16:36→19:49)
[2023-05-21] MEDS: Lactated Ringers 1,000 ML 200 ML IV (17:57)
[2023-05-21] MEDS: Ondansetron 4 MG/2 ML Vial IV (20:56)
[2023-05-21] MEDS: Acetaminophen 500 MG Tablet PO (21:14)
[2023-05-21] MEDS: Sodium Citrate/Citric Acid 30 ML UDC PO (21:15)
--- NOTE | 2023-05-21 21:25 | OP.PCM_ITS ---
Maternal Data Information Final RENNY: 06/07/23 Gestational age: 37 4/7 Details Operative Information Date of Procedure: 05/21/23 Pre-Operative Diagnosis: arrest of dilation, CPD Post-Operative Diagnosis: same Classification: JAMES Procedure Type: low transverse implementation engineer #1: Dina Arboleda Type of Anesthesia: Epidural Anesthesiologist: Jun Bernard Antibiotic Given: Ancef 3 grams IV x1 and Zithromax 500 mg/5 mL X1 Drain: Elizabeth to straight drain Findings Description of Procedure: The patient was assessed by me at approximately 9 PM. Her cervix was still 5 cm and now is significantly edematous. Other than going from posterior to mid position there had been no significant cervical change since rupture of membranes. There is now edema of the cervix with moderate caput of the skull. There have been adequate contractions. There had not been any significant descent either. I discussed with the patient and her family response and alternatives to primary section and recommendation for this at this time. Met arrest of dilation and CPD criteria. The patient was taken to the operating room. She was prepped and draped in the dorsal supine position with a leftward tilt. A Pfannenstiel skin incision was made approximately 2 cm above the symphysis pubis and carried through to underlying layer fascia with the scalpel. The fascia was incised incised in the midline and extended laterally with the Gilmore scissors. The fascia was dissected off the rectus muscles with blunt and sharp dissection. The rectus muscles were in the midline and the peritoneum was entered bluntly. The peritoneal incision was stretched and the bladder blade was placed. The uterine incision was made in a low transverse fashion with the scalpel and extended superiorly and inferiorly with blunt dissection. The amniotic membranes were ruptured bluntly and light meconium stained amniotic fluid returned. The 's head was brought to the incision in the flexed position and delivered without difficulty. The remainder of the infant was delivered with gentle traction and fundal pressure in the standard fashion. The mouth and nares were bulb suctioned. The cord was clamped and cut as the infant was stimulated. Cord clamping was delayed. The infant was handed off to the waiting nursing staff. The placenta was delivered with fundal massage and gentle traction in the standard fashion. The uterus was exteriorized and cleared of all clots and debris. . The uterine incision was closed with #1 Vicryl in a running locked fashion. A second layer of the same suture was used in an imbricating fashion to obtain hemostasis. The incision was examined and was found to be hemostatic. The uterus was placed back into the peritoneal cavity and hemostasis was again confirmed. The rectus muscles were examined and any bleeding was Bovie cauterized. The parietal peritoneum and rectus muscles were closed en bloc with an 0 Vicryl running suture. The rectus fascia was examined and any bleeding was Bovie cauterized and the rectus fascia was closed with #1 looped PDS suture in a running standard fashion. The subcutaneous tissue was examining and any bleeding was Bovie cauterized. The subcutaneous tissue was reapproximated with 3-0 Vicryl suture. The skin was closed in a subcuticular fashion in a subcuticular fashion with 3-0 Monocryl suture. I performed the entire procedure with assistance. All sponge, lap, and needle counts were correct. The patient was taken to her room for recovery in a stable condition. Presentation: Positive for Vertex Amniotic Membrane Rupture Type: Artificial Amniotic Fluid Description: Lightly stained meconium Placental Delivery Description: Expressed Placenta Disposition: [facility] Cord Vessel Description: 3 Vessels Cord Entanglement: None Cord Gases: ABG and VBG A Gender: Female (Kollins) (1 minute): 9 (5 minute): 9 Delayed Cord Clamping: Yes Complications Complications: none Admit VTE Documentation VTE Present on Admission: No VTE Mechan Device Prophylaxis: SCD's VTE Pharm Prophylaxis Ordered: Yes
[2023-05-21] MEDS: Cefazolin 3 GM in 0.9% Normal Saline (100mL Bag) 100 ML IV (21:26)
[2023-05-21] MEDS: Azithromycin 500 MG in Dextrose 5%-Water (250mL Bag) 250 ML 250 MG IV (22:00)
[2023-05-21] MEDS: Oxytocin 15 Units/NS 250ml 15 UNITS/250 ML IV.SOLN 83 UNITS IV (22:42)
[2023-05-21] MEDS: Ketorolac 30 MG/ML Syringe IV (23:37)
[2023-05-21 23:44] LABS: Bedside Glucose 57 mg/dL (74-106)
[2023-05-22] VITALS (12 sets, daily range): BP systolic 112–144; BP diastolic 63–89; PULSE 78–107; RESP 16–18; TEMP 36.1–36.9; O2SAT 96–100
[2023-05-22] MEDS: Acetaminophen 500 MG Tablet 1000 MG PO ×4 (01:41→20:49)
[2023-05-22] MEDS: Lactated Ringers 1,000 ML 100 ML IV (01:47)
[2023-05-22] MEDS: HYDROmorphone 1 MG/ML Syringe IV (02:45)
[2023-05-22] MEDS: Ketorolac 30 MG/ML Syringe IV ×3 (04:41→18:17)
[2023-05-22] MEDS: Labetalol 100 MG Tablet PO ×2 (06:00→22:30)
[2023-05-22] MEDS: LACTATED RINGERS 500 ML 999 ML IV (06:00)
[2023-05-22 06:03] LABS: Hematocrit 31.3 % (37-47); Hemoglobin 10.4 g/dL (12.0-15.0); Mean Corp Hgb Conc 33.2 g/dL (32-36); Mean Corpuscular Hgb 29.5 pg (27.0-32.0); Mean Corpuscular Volume 88.9 fL (81-99); Mean Platelet Vol. 10.7 fl (6.2-12.0); Platelet Count 180 K/mm3 (150-450); RBC Distribution Width CV 12.6 % (11.6-14.6); RBC Distribution Width SD 40.5 fl (35.1-43.9); Red Blood Count 3.52 M/mm3 (4.2-5.4); White Blood Count 15.9 K/mm3 (4.4-11.0)
--- NOTE | 2023-05-22 06:33 | NURSING ---
Epidural catheter removed at 0600. Blue tip intact.
[2023-05-22] MEDS: metFORMIN HCl 500 MG Tablet PO ×2 (08:03→19:01)
--- NOTE | 2023-05-22 08:31 | PCM.PROGNOTE ---
Subjective Subjective patient seen at bedside, doing well. Patient reports good pain control. lochia mild. denies VELA, visual changes or RUQ pain. Objective Data Objective Data Vital Signs: Vital Signs Temp Pulse Resp BP Pulse Ox O2 Del Method 97.7 F L 78 16 112/63 97 Room Air 05/22/23 07:59 05/22/23 07:59 05/22/23 07:59 05/22/23 07:59 05/22/23 07:59 05/22/23 07:59 Oxygen Delivery Method Room Air Weight: 117.4 kg Body Mass Index (BMI) 47.3 Intake & Output: Intake and Output for Last 24 Hours 05/20/23 05/21/23 05/22/23 23:59 23:59 23:59 Intake Total 300 / 300 3739.33 / 3739.33 900 / 900 Output Total 100 / 100 1375 / 1375 150 / 150 Balance 200 / 200 2364.33 / 2364.33 750 / 750 Lab / Micro Data 05/22/23 05:55 05/20/23 17:35 Labs: Laboratory Results - last 24 hr 05/20/23 17:35: Blood Type O POSITIVE, Antibody Screen NEGATIVE 05/21/23 23:17: POC Glucose 57 L 05/22/23 05:55: WBC 15.9 H, RBC 3.52 L, Hgb 10.4 L, Hct 31.3 L, MCV 88.9, MCH 29.5, MCHC 33.2, RDW Std Deviation 40.5, RDW Coeff of Linda 12.6, Plt Count 180, MPV 10.7 Physical Exam Narrative Fundus firm. Dressing dry and intact. Diffuse swelling of extremities, mello catheter in place. Const alert and oriented x3 General Appearance: cooperative HEENT normocephalic Neck General: normal visual inspection GI soft to palpation and non-distended GI Narrative: Fundus firm Extremity normal to inspection and no calf tenderness Skin no rashes or lesions noted Neuro oriented x3 and CN's II-XII intact bilaterally Psych mental status grossly normal Assessment & Plan Assessment/Plan (1) conceived using assisted reproductive technology (ART): (2) Anxiety: (3) Obesity affecting : (4) Pre-eclampsia: (5) Chronic hypertension: (6) Delivery by section: PLAN: Plan POD#1 , Doing well Routine care pain mgmt monitor VS ambulation continue labetalol 100mg BID
[2023-05-22] MEDS: Senna/Docusate Sodium 1 Tablet PO (10:21)
[2023-05-22] MEDS: Sertraline 50 MG Tablet PO (10:21)
[2023-05-22] MEDS: 0.9% Saline Lock 10 ML Syringe IV ×2 (12:16→18:18)
[2023-05-23] MEDS: Naproxen 500 MG Tablet PO ×2 (02:07→10:08)
[2023-05-23 02:10] VITALS: BP 119/70; PULSE 89; RESP 16; TEMP 36.2; O2SAT 97
[2023-05-23] MEDS: Acetaminophen 500 MG Tablet 1000 MG PO ×2 (02:55→10:11)
[2023-05-23 07:44] VITALS: BP 121/93; PULSE 87; RESP 18; TEMP 36.1; O2SAT 98
--- NOTE | 2023-05-23 08:47 | PCM.PN.OB ---
Subjective Subjective Pain well-controlled. Average lochia. Passing flatus, no bowel movement yet. Ambulating urinating without difficulty. Denies any chest pain shortness of breath or lightheadedness. Denies any headache or visual changes. Objective Data Objective Data Vital Signs: Vital Signs Temp Pulse Resp BP Pulse Ox O2 Del Method 96.9 F L 87 18 121/93 H 98 Room Air 05/23/23 07:44 05/23/23 07:44 05/23/23 07:44 05/23/23 07:44 05/23/23 07:44 05/23/23 07:44 Oxygen Delivery Method Room Air Weight: 117.4 kg Body Mass Index (BMI) 47.3 Intake & Output: Intake and Output for Last 24 Hours 05/21/23 05/22/23 05/23/23 23:59 23:59 23:59 Intake Total 3739.33 / 3739.33 1621 / 1621 Output Total 1375 / 1375 650 / 650 Balance 2364.33 / 2364.33 971 / 971 Lab / Micro Data 05/22/23 05:55 05/20/23 17:35 Physical Exam Narrative 2+ lower extremity edema, 2+ DTRs and no clonus Const alert and no apparent distress Narrative: Fundus firm, below umbilicus. Assessment & Plan (1) Delivery by section: PLAN: Postoperative day #2 status post primary section. bottlefeeding doing well. Preeclampsia without severe features superimposed on chronic hypertension. Increase labetalol to 200 mg p.o. twice daily. May DC home today with close surveillance of blood pressures and follow-up in the office. Patient will return or call for signs or symptoms of severe preeclampsia.
--- NOTE | 2023-05-23 08:51 | PCM.DC.SUM ---
Providers Date of Admission: 05/20/23 Primary Care Physician: JACINTA Agudelo Reason For Visit: C SECTION Diagnosis Discharge Diagnosis (1) Delivery by section: Status: Acute Plan: Postoperative day #2 status post primary section. bottlefeeding doing well. Preeclampsia without severe features superimposed on chronic hypertension. Increase labetalol to 200 mg p.o. twice daily. May DC home today with close surveillance of blood pressures and follow-up in the office. Patient will return or call for signs or symptoms of severe preeclampsia. Medications at Discharge Home Medications Vitamin 1 tab PO DAILY 05/20/23 metformin 500 mg tablet 500 mg PO BID 05/20/23 sertraline 50 mg tablet (Zoloft) 50 mg PO DAILY 05/20/23 ibuprofen 600 mg tablet 600 mg PO Q6H PRN Pain 20 days #60 TABLETS 05/23/23 labetalol 100 mg tablet 200 mg (2 x 100 mg) PO BID #60 tabs 05/23/23 Hospital Course Operations - (Primary LTCS) Procedures None Summary of Care Provided Minutes Spent on Discharge: 22 Hospital Course: 22-year-old nulliparous female admitted at 37 weeks gestation on 05/20/2023. She underwent Cytotec then Elizabeth Pitocin induction of labor overnight for chronic hypertension with superimposed preeclampsia without severe features. Her was complicated by maternal obesity, she conceived by in vitro fertilization, chronic hypertension, and she was on metformin for PCOS. she progressed to 4 cm nurse. Despite adequate contractions for over 10 hours, she remained 5 cm. The cervix was swollen and there was moderate caput. She then underwent primary low-transverse section on 05/21/2023. By 05/23/2023 she was ambulating, urinating tolerating regular diet without difficulty and her blood pressures were well-controlled. She was discharged home with routine instructions and follow-up in the office on Saturday or as needed. Return for signs or symptoms of severe preeclampsia. She will have home blood pressure monitoring. Will increase her labetalol to 200 mg p.o. twice daily and she will continue her other home medications. Weight / BMI Weight Weight: 117.4 kg Body Mass Index (BMI) 47.3 ABG / Lab / Microbiology Data 05/22/23 05:55 05/20/23 17:35 D/C Instructions Discharge Diet: No restrictions May resume sexual activity in: 4-6 weeks Lifting Restrictions: 20 pounds Additional Activity Instructions: Nothing in the vagina for 4-6 weeks. You may return to work/school in 6 weeks. Call your doctor if your incision/area has: Continuous Slow Oozing, Sudden Increased Bleeding, Increased Pain/ Swelling, Increased Redness and Foul Smelling Discharge Call your doctor if you observe: Fever of 101 or Higher and Using more than 1 pad per hour (for 2 hours) Suture Line Care: Avoid Pulling/Pushing and Avoid Pinching/Bending Cleanse incision/area with: Keep Dressing Clean & Dry Please Follow Up With: Olga Acuna MD When: Call to make an appointment for an incision check and blood pressure check on 05/27/23. -Call [phone] or send a [employer] message. You will need a post check in 6 weeks. Meaningful Use Info Meaningful Use Diagnoses (Choose all that apply): None applicable Discharge Plan Admission Admit Date/Time: 05/20/23 18:20 Primary Reason for Your Visit: Labor and delivery Attending Provider: Olga Acuna Primary Care Provider: Amadeo Liu Discharge Orders/Prescriptions Prescriptions: New ibuprofen [ibuprofen] 600 mg tablet 600 mg PO Q6H PRN (Reason: Pain) 20 Days Qty: 60 1RF Continued sertraline [Zoloft] 50 mg tablet 50 mg PO DAILY metformin 500 mg tablet 500 mg PO BID Vitamin 1 tab PO DAILY Changed labetalol 100 mg tablet 200 mg PO BID Qty: 60 0RF Referrals / Follow Up: Amadeo Liu PA [Primary Care Provider] - Disposition Disposition (needs filled in before D/C Order can be placed): Home, Self Care
[2023-05-23 10:00] VITALS: BP 134/85; TEMP 36.7; O2SAT 98
[2023-05-23] MEDS: metFORMIN HCl 500 MG Tablet PO (10:08)
[2023-05-23] MEDS: Sertraline 50 MG Tablet PO (10:08)
[2023-05-23] MEDS: Senna/Docusate Sodium 1 Tablet PO (10:09)
[2023-05-23] MEDS: Labetalol 100 MG Tablet 200 MG PO (10:10)
--- NOTE | 2023-05-23 10:55 | NURSING ---
assessment completed with student nurse
--- NOTE | 2023-05-23 11:19 | CASEMGMT ---
Social Work Assessment Labor and Delivery Unit Patient Address:[address] [place] [address]. [place] [address] Phone number: [phone] Date of Referral: 05/22/23 Time of Referral:? [phone] Referred By: Olga Acuna Date of Intervention: ?05/23/23? Time of Intervention:? 929 Reason for Referral:? Anxiety, taking zoloft Sw completed chart review and acknowledges social work consult due to maternal mental health history of anxiety. Sw presented to bedside and introduced self to mother of baby (MOB- Ian) and father of baby (FOB- Urban). Sw explained reason for sw involvement and completed psychosocial assessment. History obtained from: medical records, MOB and FOB Household composition: Currently residing at family home is MOB, FOJadiel and now baby. Parents deny any issues or concerns with their housing. Patient's parent/guardian status:? ?MOB and FOB have been together for 9 years, they report that they have been together since high school. No reports at this time regarding domestic violence or intimate partner violence. Medical History: ?CHERELLE is 22 year old female who is 1, para 0- now 1 following labor and delivery of . MOB conceived baby via IVF due to PCOS. MOB delivered baby on 05/21/23 via at 37 weeks gestation. Baby girl, named Celso Hutchison, was born weighing 6lb 9oz and her was 9. Baby will be followed by Dr. Glez for pediatrics. MOB states that she is breast feeding and it is going well, MOB states that she has a pump for home. Educational Status:?Both parents graduated from high school. MOB obtained her Master's degree in Human Resources. Parents deny any concerns with reading, learning or comprehension. Financial l Status: Both parents are gainfully employed. FOB works at [employer] and is able to take two weeks off of work now that baby has been born. MOB works at [employer] and is able to take 12 weeks off of work. Infant Supplies:?? Parents have received all necessary products, including: car seat, safe sleep space, clothes, diapers and wipes. Childcare/Caregiver(s):? MOB will be the primary caregiver for baby, along with FOB when he is not at work. When both parents are working they have family members that will babysit baby. Transportation:?? 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 No barriers. Programs/Agencies Involved: ???Parents are not connected to any community resources that help them financially. Children Services/Legal Issues:??? No history of children services involvement, no issues or concerns warranting referral to be made at this time. Behavioral Health Issues: ??Mental Health History:?FOB denies mental health diagnoses. MOB reports that she has been diagnosed with anxiety, and was prescribed early on during with zoloft. MOB states that the anxiety comes from their infertility journey and being anxious about the . MOB reports that she is aware of signs and symptoms to be on the lookout for. ?? Substance Use History: MOB denies substance use prior to and during . ?? Family History:??Parents deny family history of addiction/ substance use disorder and mental health diagnoses. ??? Drug Screens: ??No urine screens observed during chart review. Family/Social Stressors:?Parents deny any stressors at this time. Support Systems: MOB states that baby is first grandchild on both sides of the family. MOB states that both sets of grandparents are extremely supportive. Depression/Shaken Baby/Safe Sleeping:? Sw educated parents on signs and symptoms of baby blues and depression and anxiety. Sw provided literature for parents to review and discussed healthy and appropriate coping skills to utilize if MOB were to struggle. Sw explained to parents that MOB has higher likelihood due to history of anxiety. Parents express understanding. ASSESSMENT:? MOB and baby admitted following labor and delivery. MOB and FOB both present and engaged during sw completion of psychosocial assessment. Parents express understanding of signs to be on the lookout for regarding symptoms during MOB period. MOB on medication to help with anxiety and plans to remain on medication during this period. MOB open and talkative and receptive to sw involvement. Parents have obtained all necessary baby supplies and have adequate natural supports in place. PLAN:?MOB and baby to be discharged when medically ready. ?No other services requested or indicated. Isaac Huang, LOW VOLTAGE ELECTRICIAN, TRANSPORTATION BROKER
== END 2023-05-23 12:00 | disposition home or self-care (01) | DRG 787 ==
LOC: WPOUT 18:25 → WP 18:25
PROVIDERS: Obstetrics & Gynecology; Admitting Provider Obstetrics & Gynecology; PCP Physician Assistant; Visit Provider Obstetrics & Gynecology
DX: O32.4XX0 Maternal care for high head at term, not applicable or unspecified (principal); O10.02 Pre-existing essential hypertension complicating childbirth; O11.4 Pre-existing hypertension with pre-eclampsia, complicating childbirth; E66.8 Other obesity; F41.9 Anxiety disorder, unspecified; E28.2 Polycystic ovarian syndrome; O99.214 Obesity complicating childbirth; Z37.0 Single live birth; Z3A.37 37 weeks gestation of pregnancy; O99.344 Other mental disorders complicating childbirth; O77.0 Labor and delivery complicated by meconium in amniotic fluid; O33.9 Maternal care for disproportion, unspecified; O99.284 Endocrine, nutritional and metabolic diseases complicating childbirth
CPT/HCPCS: 59025; 59050; 82565; 82570; 82962; 84156; 84450; 84460; 84550; 85027; 86780; 86850; 86900; 86901; 99221; J7120; A4216; G0378; J2405

== ENCOUNTER → 2024-10-14 | Outpatient (CLI) | payer OTHER, SELFPAY ==
[2024-10-14 14:53] LABS: Hematocrit 43.9 % (37-47); Hemoglobin 14.7 g/dL (12.0-15.0); Mean Corp Hgb Conc 33.5 g/dL (32-36); Mean Corpuscular Volume 87.6 fL (81-99); Mean Platelet Vol. 9.5 fl (6.2-12.0); Platelet Count 289 K/mm3 (150-450); RBC Distribution Width CV 12.4 % (11.6-14.6); RBC Distribution Width SD 39.8 fl (35.1-43.9); Red Blood Count 5.01 M/mm3 (4.2-5.4); White Blood Count 9.5 K/mm3 (4.4-11.0)
[2024-10-14 16:06] LABS: AST(SGOT) 19 U/L (<=31); Alanine Aminotransfer ALT/SGPT 17 U/L (<=34); Albumin, Serum 4.3 g/dL (3.5-5.0); Alkaline Phosphatase 80 U/L (35-104); Anion Gap 14 (5-15); BUN 15 mg/dL (4-19); BUN/Creat Ratio 16.5 RATIO (10-20); Calcium,Total 9.1 mg/dL (7.6-11.0); Carbon Dioxide 21.3 mmol/L (21.0-32.0); Chloride 100 mmol/L (98-108); Free T3 3.4 pg/mL (2.18-3.98); Globulin 2.8 g/dL (2.2-4.2); Glucose 84 mg/dL (70-99); HIV Nonreactive (Nonreactive); Hepatitis B Surface Antigen Nonreactive (Nonreactive); Hepatitis C Antibody Nonreactive (Nonreactive); Potassium 4.1 mmol/L (3.3-5.1); T4 Total, Thyroxin 8.8 ug/dL (4.8-13.9)
[2024-10-16 08:08] LABS: V-Zoster IgG (Immunity) Reactive (Non Reactive)
== END | disposition home or self-care (01) ==
LOC: PAVLAB 14:34
PROVIDERS: PCP Clinical Nurse Specialist Adult Health; Referring Provider Obstetrics & Gynecology Reproductive Endocrinology; Visit Provider Obstetrics & Gynecology Reproductive Endocrinology
DX: Z31.41 Encounter for fertility testing (principal)
CPT/HCPCS: 36415; 80053; 84436; 84443; 84481; 85027; 86703; 86762; 86787; 86803; 87340

== ENCOUNTER → 2024-10-21 | Outpatient (CLI) | payer OTHER, SELFPAY ==
[2024-10-21 18:17] LABS: Syphilis Antibodies Nonreactive (Nonreactive); Vitamin D,25 Hydroxy 39.4 ng/mL (30-100)
[2024-10-26 13:08] LABS: Anti-Mullerian Hormone,Serum 2.11 ng/mL (.); PROLACTIN 29.8 ng/mL (4.8-33.4)
== END | disposition home or self-care (01) ==
PROVIDERS: PCP Clinical Nurse Specialist Adult Health; Referring Provider Obstetrics & Gynecology Reproductive Endocrinology; Visit Provider Obstetrics & Gynecology Reproductive Endocrinology
DX: Z31.41 Encounter for fertility testing (principal)
CPT/HCPCS: 36415; 82306; 83036; 83516; 84146; 84403; 86780

== ENCOUNTER 2025-02-12 11:40 | Emergency (ER) | payer OTHER, SELFPAY ==
[2025-02-12 11:41] VITALS: BP 130/92; PULSE 99; RESP 18; TEMP 36.8; O2SAT 98; BMI 37.1
[2025-02-12 12:24] LABS: Hematocrit 44.7 % (37-47); Hemoglobin 15.0 g/dL (12.0-15.0); Immature Granulocytes Count 0.040 X10^3/uL (0.0-0.0); Mean Corp Hgb Conc 33.6 g/dL (32-36); Mean Corpuscular Volume 89.9 fL (81-99); Mean Platelet Vol. 9.4 fl (6.2-12.0); NRBC Flagged by Analyzer 0 % (0-5); Platelet Count 234 K/mm3 (150-450); RBC Distribution Width CV 11.9 % (11.6-14.6); RBC Distribution Width SD 39.1 fl (35.1-43.9); Red Blood Count 4.97 M/mm3 (4.2-5.4); White Blood Count 7.8 K/mm3 (4.4-11.0)
[2025-02-12 12:51] LABS: AST(SGOT) 19 U/L (<=31); Alanine Aminotransfer ALT/SGPT 22 U/L (<=34); Albumin, Serum 4.2 g/dL (3.5-5.0); Alkaline Phosphatase 80 U/L (35-104); Anion Gap 10 (5-15); BUN 10 mg/dL (4-19); BUN/Creat Ratio 12.3 RATIO (10-20); Calcium,Total 8.9 mg/dL (7.6-11.0); Carbon Dioxide 28.5 mmol/L (21.0-32.0); Chloride 101 mmol/L (98-108); Estimated Creatinine Clearance 109.51 ml/min (50-250); Globulin 2.7 g/dL (2.2-4.2); Glucose 110 mg/dL (70-99); Lipase 19 U/L (13-75); Potassium 3.8 mmol/L (3.3-5.1)
[2025-02-12 12:53] VITALS: BP 132/87; PULSE 95; RESP 17; O2SAT 100
[2025-02-12 12:53] LABS: Internal QC Validated? YES +Cl - CLEAR BKGD; Pregnancy, Serum, hCG Quali. NEGATIVE Negative; Record Kit Lot#, Serum Preg. 0000980607
[2025-02-12 12:55] LABS: Mucous, Urine 0 SEEN /hpf (<or=2+)
[2025-02-12 13:04] LABS: Color, Urine Yellow (Yellow); Glucose, Dipstick Normal (Normal); Ketone-Dipstick Negative (Negative); Leukocyte Esterase-Dipstick Negative /ul (Negative); Nitrite-Dipstick Negative (Negative); Occult Blood-Urine 25 /ul (Negative); Protein-Dipstick 30 mg/dl (Negative); Specific Gravity, Urine 1.015 (1.002-1.030); Urine Bilirubin Dipstick Negative (Negative)
--- NOTE | 2025-02-12 13:04 | US_ITS ---
PROCEDURE: GALLBLADDER 02/12/2025 REASON FOR EXAM: PAIN TECHNIQUE: Procedure Code: USGB Modality: US Procedure: GALLBLADDER COMPARISON: September 11, 2019 CT FINDINGS: Liver: No mass. Non cirrhotic. Gallbladder: Negative sonographic Ventura's sign. Gallbladder is normal. No calculus. Common bile duct: Normal measuring 2.9 mm. Pancreas: Normal Other: Right kidney is 9.8 cm in length. No collecting system dilation. US/Gallbladder IMPRESSION: No acute abnormality Reading Location: [id number]
[2025-02-12] MEDS: HYDROmorphone 0.5 MG/0.5 ML SYRINGE IV (13:09)
[2025-02-12 13:10] LABS: Red Blood Cells-Urine 0-5 SEEN /hpf (0-5); Squamous Epithelial Cells - UA 0-5 SEEN /hpf (5-10)
--- NOTE | 2025-02-12 13:12 | EX.ED.DYSGE1 ---
HPI History of Present Illness Chief Complaint: Abd Pain Informant: patient and spouse/S.O. Narrative Narrative: 24-year-old female presenting to the emergency room with abdominal pain and vomiting. Patient states that yesterday at work she ate a [employer] truck. She states a couple hours later she developed pain in her upper abdomen as well as vomiting. That improved but never resolved during the night and has continued into today. She notes pain right upper quadrant and epigastrium. She denies any changes in bowel habits. She has not had any discomfort with eating recently. No black or bloody stools. She is on metformin for PCOS. No history of pancreatitis. [facility] Medical History Renal vein stenosis PCOS (polycystic ovarian syndrome) Infertility conceived using assisted reproductive technology (ART) Pre-eclampsia Abdominal pain Nausea vomiting and diarrhea Hypertension Home Medications Medication Instructions Recorded Last Taken Type Vitamin 1 tab PO DAILY 05/20/23 05/20/23 08:00 History 1tab metformin 500 mg tablet 500 mg PO BID 05/20/23 05/20/23 08:00 History 500 mg sertraline 50 mg tablet (Zoloft) 50 mg PO DAILY 05/20/23 05/20/23 08:00 History 50 mg ibuprofen 600 mg tablet 600 mg PO Q6H PRN Pain 20 days #60 05/23/23 Unknown Rx TABLETS labetalol 100 mg tablet 200 mg (2 x 100 mg) PO BID #60 tabs 05/23/23 05/20/23 08:00 Rx 100 mg dicyclomine 20 mg tablet 20 mg PO TID PRN abdominal pain 02/12/25 Unknown Rx #15 tabs ondansetron 4 mg disintegrating 4 mg PO Q6H PRN PRN Nausea #15 tabs 02/12/25 Unknown Rx tablet Allergy/AdvReac Type Severity Reaction Status Date / Time amoxicillin (From Augmentin) AdvReac Intermediate nausea, Verified 02/12/25 11:42 vominting, diarrhea clavulanic acid (From AdvReac Intermediate nausea, Verified 02/12/25 11:42 Augmentin) vominting, diarrhea Surgical History Delivery by section Homer teeth removed History of surgery Social History Smoking Status: Never smoker alcohol intake: never substance use type: does not use caffeine: Yes what type of physical activity do you participate in: walking seatbelt use: always do you feel safe at home: Yes additional social history: kerwin - Urban works at [employer] in [employer] ROS ED Constitutional Constitutional ED: Reports fever(s) and subjective; Denies chills or weight loss Eyes Eyes: Denies change in vision or diplopia ENT ENT ED: Denies ear pain, rhinorrhea or sore throat Cardiovascular Cardiovascular: Denies chest pain, orthopnea, palpitations or racing heartbeat Respiratory/Chest Respiratory/Chest: Denies cough, dyspnea or orthopnea Gastrointestinal Gastrointestinal: Reports abdominal pain, nausea and vomiting; Denies diarrhea Genitourinary Genitourinary ED: Denies dysuria, hematuria or urinary frequency Musculoskeletal Musculoskeletal: Denies arthralgias or myalgias Integumentary Denies abscess or rash Neurologic Neurologic: Denies headache(s) or weakness Psychiatric Psychiatric: Denies anxiety, depression, suicidal ideation or suicidal thoughts Endocrine Endocrinology: Denies polydipsia, polyphagia or polyuria Allergic/Immunologic Allergic/Immunologic ED: Denies mouth swelling, tongue swelling or urticaria EXAM Physical Exam Const Vital Signs: 02/12/25 11:41 02/12/25 12:53 02/12/25 14:00 Temperature 98.2 F Temperature Source Oral Pulse Rate 99 95 83 Respiratory Rate 18 17 Blood Pressure 130/92 H 132/87 H 117/82 H Blood Pressure Mean 104 102 93 Pulse Ox 98 100 98 Oxygen Delivery Method Room Air Room Air Room Air 02/12/25 15:01 02/12/25 15:02 Temperature 98.2 F Temperature Source Pulse Rate 82 82 Respiratory Rate 17 Blood Pressure 110/69 110/69 Blood Pressure Mean 82 82 Pulse Ox 100 100 Oxygen Delivery Method Room Air Positive well nourished and well developed General Appearance ED: well developed and NAD HEENT Reports normocephalic, head/scalp atraumatic and moist mucous membranes Eyes PERRL and EOMs intact bilaterally Neck no lymphadenopathy, supple and no JVD Resp normal respiratory effort and clear to auscultation bilaterally Cardio regular rate, regular rhythm and no murmurs GI GI Narrative: Tender to palpation in the right upper quadrant. The abdomen is soft. There is normal active bowel sounds. There is no distention. Inspection: Negative for abdominal distention Auscultation: normoactive bowel sounds Palpation: soft, tender epigastric and RUQ and guarding; Negative for rebound tenderness present Back/Spine no CVA tenderness and normal ROM Extremity normal to inspection General Extremety ED: Negative for edema General Extremity: Negative for edema Neuro oriented x3 and CN's II-XII intact bilaterally Sensorium / Orientation: alert Motor Exam: strength 5/5 throughout Psych mental status grossly normal Mood & Affect: Negative for depressed or tearful Skin no rashes or lesions noted and no wounds MDM MDM MDM Narrative Medical decision making narrative: Differential diagnosis includes but not limited to cholelithiasis acute cholecystitis choledocholithiasis pancreatitis GERD viral and bacterial foodborne illness colitis Basic blood work was obtained through nursing protocol white count 7.8 hemoglobin of 15 plate count is 234. LFTs and lipase are within normal limits. Glucose 110 normal creatinine. Urinalysis is negative. test is negative. A formal gallbladder ultrasound was obtained. This was negative for pericholecystic fluid and dilated common bile duct or obvious cholelithiasis. Patient received pain and nausea medication. Talk to the patient and her regarding the above results. I will recommend antiemetics and I can write for some Bentyl. If worsening or not improving patient should return. She should consider a HIDA scan if she has persistent/recurrent symptoms. History & Record Review Discussion w/independent historian: Patient and Significant other Lab Data Attestation: I reviewed the patient's lab results. Labs: Laboratory Results - last 24 hr 02/12/25 02/12/25 11:45 12:51 WBC 7.8 RBC 4.97 Hgb 15.0 Hct 44.7 MCV 89.9 MCH 30.2 MCHC 33.6 RDW Std Deviation 39.1 RDW Coeff of Linda 11.9 Plt Count 234 MPV 9.4 Immature Gran % (Auto) 0.500 Neut % (Auto) 74.2 H Lymph % (Auto) 16.0 L Toombs % (Auto) 7.1 Eos % (Auto) 1.7 Baso % (Auto) 0.5 Absolute Neuts (auto) 5.8 Absolute Lymphs (auto) 1.24 Nucleated RBC % 0 Sodium 139 Potassium 3.8 Chloride 101 Carbon Dioxide 28.5 Anion Gap 10 BUN 10 Creatinine 0.83 Estim Creat Clear Calc 109.51 Est GFR (MDRD) Non-Af 101 BUN/Creatinine Ratio 12.3 Glucose 110 H Calcium 8.9 Total Bilirubin 0.41 AST 19 ALT 22 Alkaline Phosphatase 80 Total Protein 6.9 Albumin 4.2 Globulin 2.7 Albumin/Globulin Ratio 1.6 Lipase 19 Serum , Qual NEGATIVE Urine Color Yellow Urine Clarity Clear Urine pH 6.5 Ur Specific [place] 1.015 Urine Protein 30 H Urine Glucose (UA) Normal Urine Ketones Negative Urine Occult Blood 25 H Urine Nitrite Negative Urine Bilirubin Negative Urine Urobilinogen 1 H Ur Leukocyte Esterase Negative Urine RBC 0-5 SEEN Urine WBC 0 SEEN Ur Squamous Epith Cells 0-5 SEEN Urine Bacteria 0 SEEN Urine Mucus 0 SEEN Radiography Diagnostic Testing: Clinical Impression(s) from Imaging Studies Gallbladder Ultrasound 02/12/25 13:04 IMPRESSION: No acute abnormality Reading Location: [facility] Discharge Plan Triage Chief Complaint: Abd Pain ED Provider: Ramiro Figueroa Dx/Rx/DC Orders Clinical Impression: Abdominal pain, Nausea & vomiting Instructions: Abdominal Pain, HIDA Scan Prescriptions: New ondansetron 4 mg tablet,disintegrating 4 mg PO Q6H PRN PRN (Reason: Nausea) Qty: 15 0RF dicyclomine 20 mg tablet 20 mg PO TID PRN (Reason: abdominal pain) Qty: 15 0RF No Action sertraline [Zoloft] 50 mg tablet 50 mg PO DAILY metformin 500 mg tablet 500 mg PO BID Vitamin 1 tab PO DAILY ibuprofen [ibuprofen] 600 mg tablet 600 mg PO Q6H PRN (Reason: Pain) 20 Days Qty: 60 1RF labetalol 100 mg tablet 200 mg PO BID Qty: 60 0RF Primary Care Provider: Sammi Carpio Referrals: Sammi Carpio, PRODUCTION TOOL ENGINEER [Primary Care Provider, Family Practice] - 3-5 Days if not improving Print Language: Turkmen Disposition Disposition: Home, Self Care Discharge Date/Time: 02/12/25 15:09
[2025-02-12 14:00] VITALS: BP 117/82; PULSE 83; O2SAT 98
[2025-02-12 15:01] VITALS: BP 110/69; PULSE 82; O2SAT 100
[2025-02-12 15:02] VITALS: BP 110/69; PULSE 82; RESP 17; TEMP 36.8; O2SAT 100
== END 2025-02-12 15:09 | disposition home or self-care (01) ==
PROVIDERS: Emergency Provider Emergency Medicine; PCP Clinical Nurse Specialist Adult Health; Visit Provider Emergency Medicine
DX: R10.9 Unspecified abdominal pain (principal); R11.2 Nausea with vomiting, unspecified; I10 Essential (primary) hypertension; E28.2 Polycystic ovarian syndrome
CPT/HCPCS: 76705; 80053; 81001; 83690; 84703; 85025; 96374; 96375; 99284; A4216; J2405